=== PATIENT | male | born 1970 | race African-American/Black ===

== ENCOUNTER 2020-02-21 06:37 | Day surgery (SDC) | payer OTHER ==
[~2020-02-21] VITALS: Ht 172.7 cm; Wt 85.3 kg
[2020-02-21] VITALS (10 sets, daily range): BP systolic 118–143; BP diastolic 80–92; PULSE 53–66; TEMP 98.3
[2020-02-21 07:28] LABS: HEMATOCRIT 40.4 % (42.0-52.0); HEMOGLOBIN 13.3 g/dl (13.5-18.0); MEAN CELL VOLUME 87 fl (80.0-100.0); MEAN CORPUSCULAR HEMOGLOBIN 29 pg (27.0-31.0); MEAN CORPUSCULAR HGB CONC 33 g/dl (33.0-37.0); MEAN PLATELET VOLUME 10.8 fl (7.4-10.4); PLATELET COUNT 167 K/mm3 (130-400); RED BLOOD COUNT 4.62 M/mm3 (4.20-5.60); REDCELL DISTRIBUTION WIDTH-CV 13.2 % (11.5-14.5)
[2020-02-21 07:36] LABS: PROTHROMBIN TIME 11.2 SECONDS (9.7-12.8)
[2020-02-21 07:38] LABS: CALCIUM 8.8 mg/dL (8.4-10.2); CREATININE, serum 0.97 (0.66-1.25); POTASSIUM 3.8 mmol/L (3.4-5.0)
[2020-02-21 07:39] LABS: PARTIAL THROMBOPLASTIN TIME 30.4 SECONDS (26.0-37.0)
[2020-02-21] MEDS ORDERED: ALEVE 220MG220 MG PO (07:51)
[2020-02-21] MEDS ORDERED: OMEGA-3 1000 MG1 CAP PO (07:51)
[2020-02-21] MEDS ORDERED: B-12 500 MCG PO (07:52)
[2020-02-21] MEDS ORDERED: ASPIRIN E.C. 8181 MG PO (07:52)
[2020-02-21] MEDS ORDERED: ZYRTEC 10MG10 MG PO (07:58)
[2020-02-21] MEDS ORDERED: VIAGRA50 M1 PO (07:59)
[2020-02-21] MEDS ORDERED: FLONASEALLERGY NS (07:59)
[2020-02-21] MEDS ORDERED: VANICREAM1 CRE TD (08:00)
[2020-02-21] MEDS ORDERED: MAGIC MOUTH PO (08:01)
[2020-02-21] MEDS ORDERED: TYLENOL 325MG325 MG PO (08:01)
[2020-02-21] MEDS ORDERED: LEVITRA20 MG PO (08:02)
[2020-02-21] MEDS ORDERED: RETIN-A CR0.05 20GM TP (08:03)
--- NOTE | 2020-02-21 09:04 | NUR ---
SEE MERGE DOCUMENTATION FOR MEDICATION ADMINISTRATION AND INTRA/POST PROCEDURE SEDATION ASSESSMENTS.
--- NOTE | 2020-02-21 10:00 | NUR ---
Back from [facility] by bed. Drowsy but oriented. VSS, Right Tband with 12 cc in band CD&I, good pulses and cap refill < 3 secs.
--- NOTE | 2020-02-21 12:45 | NUR ---
INT discontinued intact. Right Tband deflated of 12 cc air and pressure dressing applied.
--- NOTE | 2020-02-21 13:00 | NUR ---
Discharge instructions given. Transferred to private car by kylee
== END 2020-02-21 13:09 | disposition home or self-care (01) ==
LOC: COL.CAR 06:37
PROVIDERS: Internal Medicine Cardiovascular Disease
DX: I20.0 Unstable angina (principal); I10 Essential (primary) hypertension; R94.39 Abnormal result of other cardiovascular function study; N52.9 Male erectile dysfunction, unspecified; Z79.51 Long term (current) use of inhaled steroids
CPT/HCPCS: C1769; C1887; J1644; J2250; J3010; Q9967